=== PATIENT | male | born 1995 | race Caucasian/White ===

== ENCOUNTER → 2016-11-01 | Outpatient (CLI) | payer OTHER ==
--- NOTE | 2016-11-01 11:05 | REP ---
Clinical: Acute cough . Comparison: None . Technique: PA and lateral. Findings: The mediastinum and cardiac silhouette are normal. The lung bourne are clear and without acute consolidation, effusion, or pneumothorax. The skeletal structures are intact and normal. Impression: 1. No acute cardiopulmonary process. Signed by Jarek Goodwin MD 11/01/2016 10:58 A
== END ==
LOC: M SMT 10:25
PROVIDERS: ATTEND Nurse Practitioner Adult Health
DX: R05 Cough (principal)

== ENCOUNTER → 2017-04-27 | Outpatient (CLI) | payer OTHER ==
[~2017-04-27] MED LIST: METHACHOLINE KIT (J7674) INH ONE
--- NOTE | 2017-04-27 10:45 | PFTRPT ---
Tech: Garry ELLINGTON RRT Age: 21 Sex: Male Race: Height: 74.50 Inches Weight: 228.00 Lbs BSA: 2.31 Diagnosis: R05 METHACHOLINE CHALLENGE REPORT: ORDERING PROVIDER: ESTEFANI Dale DATE OF SERVICE: 04/27/17 INTERPRETATION: The study was of excellent technical quality. Under protocol, methacholine was administered. At a dose of 0.25 mg (1.375 CDUs), a 41% decline in the FEV1 was noted. The PC20 of 0.04 is significant. Flow rates returned to baseline post bronchodilator administration. IMPRESSION: Positive methacholine challenge study. MTDD
== END ==
LOC: M CARPUL 09:47
PROVIDERS: ATTEND Nurse Practitioner Adult Health
DX: R05 Cough (principal)
CPT/HCPCS: 94070; J7674